=== PATIENT | male | born 1960 | race Caucasian/White ===

== ENCOUNTER 2018-12-07 06:13 | Inpatient (IN) ==
[2018-12-06 10:17] LABS: HEMATOCRIT 38.2 % (42.0-52.0); HEMOGLOBIN 13.7 g/dL (14.0-18.0); MCH 31.8 PG (27-31); MCHC 35.9 g/dL (33-37); MCV 88.6 FL (81-99); MPV 8.1 FL (7.4-10.4); RBC 4.31 XMIL (4.7-6.1); RDW 12.2 % (11.5-14.5); WBC 6.9 X1000 (4.8-10.8)
[2018-12-06 11:10] LABS: AGAP 10; BUN 7 mg/dL (8-22); CALCIUM 9.3 mg/dL (8.8-10.2); CHLORIDE 94 mmol/L (98-107); COSMO 263; CREATININE 0.7 mg/dL (0.7-1.2); ESTIMATED GFR > 60; GLUCOSE 104 mg/dL (70-104); POTASSIUM 4.5 mmol/L (3.5-5.1); SODIUM 132 mmol/L (136-145); TCO2 28 mmol/L (25-35)
[2018-12-07] MEDS ORDERED: LR 1,000 ML ONE ×3 (06:41→14:22)
[2018-12-07] MEDS ORDERED: INVANZ 1 GM/NS 1 GM/50 ML IVPB ONE (06:41)
[2018-12-07] MEDS ORDERED: ENTEREG ONE (06:41)
[2018-12-07] MEDS ORDERED: DIPRIVAN 1% ONE (07:34)
[2018-12-07] MEDS ORDERED: XYLOCAINE-MPF 2% ONE (07:39)
[2018-12-07] MEDS ORDERED: QUELICIN (DOSE) ONE (07:39)
[2018-12-07] MEDS ORDERED: MARCAINE 0.25% ONE (08:03)
[2018-12-07] MEDS ORDERED: EXPAREL 1.3% ONE (08:03)
[2018-12-07] MEDS ORDERED: SENSORCAINE-MPF 0.5%/EPI 1:200,000 ONE (08:14)
[2018-12-07] MEDS ORDERED: OFIRMEV 1000 MG/ISOTONIC SOLN 1,000 MG/100 ML BOTTLE ONE (10:31)
[2018-12-07] MEDS ORDERED: DECADRON ONE (10:31)
[2018-12-07] MEDS ORDERED: ROBINUL ONE ×3 (10:31→13:47)
[2018-12-07] MEDS ORDERED: ZOFRAN ONE (10:31)
[2018-12-07] MEDS ORDERED: FENTANYL ONE (13:19)
[2018-12-07] MEDS ORDERED: NEOSTIGMINE ONE (13:47)
[2018-12-07 14:29] LABS: URINE SOURCE CATH
[2018-12-07] MEDS: DILAUDID ONE ×6 (14:35→15:02)
[2018-12-07 14:42] LABS: BILIRUBIN URINE NEGATIVE (NEGATIVE); BLOOD URINE LARGE (NEGATIVE); COLOR ORANGE; GLUCOSE URINE NEGATIVE (NEGATIVE); KETONE URINE TRACE mg/dL (NEGATIVE); LEUKOCYTES URINE NEGATIVE (NEGATIVE); NITRITE URINE NEGATIVE (NEGATIVE); PH URINE 6.5; PROTEIN URINE 30 mg/dL (NEGATIVE); SP GRAVITY URINE 1.004; TURBIDITY URINE HAZY (CLEAR); UROBILINOGEN URINE NORMAL (NORMAL)
[2018-12-07 14:44] LABS: UR EPITHELIAL CELLS <10 /HPF (<10); URINE BACTERIA NEGATIVE /HPF; URINE RBC TNTC /HPF (<10); URINE WBC <10 /HPF (<10)
[2018-12-07] MEDS: ZOFRAN IV PRN (17:00)
[2018-12-07] MEDS: MORPHINE IV PRN ×2 (17:00→21:11)
[2018-12-07] MEDS: OFIRMEV 1000 MG/ISOTONIC SOLN 1,000 MG/100 ML BOTTLE IV SCH ×2 (17:03→22:30)
--- NOTE | 2018-12-07 18:08 | OPERATIVE NOTE ---
PROCEDURE DATE: 12/07/2018 PREOPERATIVE DIAGNOSIS: 1. Diverticulitis. 2. Fossa navicularis stricture. POSTOPERATIVE DIAGNOSIS: 1. Diverticulitis. 2. Fossa navicularis stricture. PROCEDURE PERFORMED: 1. Cystoscopy with urethral dilation. 2. Bilateral external lighted stent placement. SURGEON: Alfonso Naylor MD. COMPLICATIONS: None. BLOOD LOSS: Minimal. DRAINS: 1. Bilateral external lighted stents. 2. A 16-Gambian Martins catheter. ANESTHESIA: General anesthesia. INDICATION FOR PROCEDURE: Mr. Gardner is a 58-year-old with history of diverticulitis. He has been followed by Dr. Otero and has had multiple flares. Ultimately patient desired undergoing a robotic assisted laparoscopic sigmoid colectomy. Risks, benefits and alternatives were discussed with the patient. In talking with Dr. Otero, he desired placement of external lighted stents. Urology was consulted who saw the patient in the preop area in preparation for cystoscopy and placement of external lighted stents. The patient has previously seen by Dr. Cervantes for urethral stricture disease and has undergone dilations both in the operating room as well as in the office. The patient states he currently voids well without any issues. Discussed with him preoperatively undergoing cystoscopy and bilateral external lighted stent placement. Risks, benefits and alternatives to this were discussed with the patient, and the patient wished to proceed. DESCRIPTION OF PROCEDURE: After informed consent was obtained, the patient was brought to the operating room and placed on the operative table in supine position. He received preoperative appointment per GI Surgery protocol. He underwent general anesthesia and was then prepped and draped in usual fashion at which time a preop time-out was performed with all parties in agreement, including anesthesia, surgical and nursing staff. At which time I attempted to place a 21-Gambian cystourethroscope. Once inside the meatus, there was a stricture in the a fossa navicularis. I was unable to pass the cystourethroscope any farther. Ultimately obtained Ritchie dilators, and starting at 16-Gambian and increasing up to 24-Gambian, these slid easily through this narrow area and allowed for dilation at which point I was able to pass the cystourethroscope easily, which showed normal appearance of the proximal urethra. No evidence of any stricture disease. The patient had slight enlargement of the prostate with a small median lobe. On inspection of the bladder, there was no evidence of any trabeculations, cellules, diverticulum or lesions. Both ureteral orifices were visualized with efflux of clear urine at which point I placed the first external lighted stent through the scope and cannulated the right ureteral orifice and passed the ureteral stent passed up to 25cm parish. The cystourethroscope was then removed, and then reinserted and ureteral catheter was then placed in the left ureteral orifice. There was slight bowing of the externalized catheters, which required pulling back on both sides at which point the cystourethroscope was completely removed, and the lighted portions of the stents were then passed through the open-ended catheters due to the patient these were attached, and a 16-Gambian Martins catheter was inserted through the urethra. 10 mL of sterile water were placed through the balloon and placed to gravity drainage. These were all tied together with a silk tie. The patient was then transferred back to the care of Dr. Otero for his portion of procedure. Please see separately dictated operative note. cc: MD Laura Abel MD MTDD
--- NOTE | 2018-12-07 18:30 | OPERATIVE NOTE ---
PROCEDURE DATE: 12/07/2018 PREOPERATIVE DIAGNOSIS: Refractory diverticulitis. POSTOPERATIVE DIAGNOSIS: Refractory diverticulitis. OPERATION: Robotic-assisted laparoscopic sigmoid colectomy. SURGEON: Luara Otero MD FIRE SPRINKLER FITTER: Will Estevez MD. Dr. Estevez was present for the creation of the anastomosis, fired the stapler and facilitated exposure. ESTIMATED BLOOD LOSS: 50 mL SPECIMENS: Sigmoid colon. ANESTHESIA: General with TAP block. INDICATIONS: A 58-year-old gentleman who has had recurrent episodes of diverticulitis for some time. The most recent episode has persisted, and he has had consistent lower abdominal discomfort and dysuria. OPERATIVE FINDINGS: There is thickening and extensive diverticular changes of a redundant sigmoid colon. The proximal rectum and distal descending appeared overall normal, with the exception of some diverticula in the descending colon. PROCEDURE: Risks, benefits and alternatives were discussed with the patient. He consented to the procedure, seen preoperatively. The surgical site was confirmed. He was taken to the operating room and placed in supine position. General anesthesia was induced. We did attempt to place lighted ureteral stents by Dr. Naylor, but he was unable to get these to fully cannulate the ureters. A Martins catheter was placed. He was then placed in lithotomy position, and after hair was removed with clippers his abdomen was prepped with chlorhexidine solution and draped in the usual fashion. After a time-out, we started with a supraumbilical just right of midline incision approximately 25 cm from the pubic symphysis and carried this down through the muscle, splitting the fibers. We then entered the abdomen in an open controlled fashion and a 12 mm camera was placed. We then insufflated the abdomen. Between the ASIS and the umbilicus we placed a robotic 12 mm trocar. In the left upper quadrant we placed a robotic trocar. In the right upper quadrant we placed an temporary administrative assistant 5 mm trocar, and left laterally above the reflection of the colon we placed another robotic trocar. We docked the robot. There were dense lateral adhesions. We took these down, identifying the ureter promptly and protecting along its course. We then continued our mobilization as proximal as we could, up toward the splenic flexure and distally down to the proximal rectum, which was healthy. We then divided the sigmoid branches off of the ABDIFATAH, took these and carried our dissection distally, clearing off the colon both proximally and distally. We placed a Alessandra drain around our planned distal transection point, administered our Firefly fluorescence, and noted good perfusion of the distal rectum at our transection point and of the proximal specimen. At this point a green load stapler was used to divide the colon distally. We then created a specimen extraction port in the left lower quadrant. I placed an Kurtis, brought our specimen out and then transected with curved Acosta scissors. We noted bleeding at our cut mucosal edge. A 28 mm EEA anvil was placed into the colon proximally and then the distal colon was closed with another fire of the AMIE. We did incorporate around the anvil some adjacent diverticula. I placed this back into the abdomen and then re-insufflated the abdomen. The 28 mm EEA stapler was passed up from below. The spike was deployed. We mated the 2 ends. There was no tension. There was good closure and 2 intact donuts were noted. We did a submerged pneumatic leak test. There was no leaking noted. Dr. Estevez performed the stapled portion of the anastomosis and was critical to the completion of this case. After this, we inspected and noted hemostasis. No twisting of our proximal specimen. There was no tension whatsoever on our anastomosis. We removed all of our trocars. We closed the fascia in the specimen extraction site in 2 layers with 0 Vicryl and #1 PDS suture. The other trocars were closed with 0 Vicryl and the skin was closed with surgical clips. Dressing was applied. His urine was clear at the end of the case. He was awoken and transferred to recovery. I spoke with the family. cc: Laura Otero MD
[2018-12-07] MEDS: PERIDEX MT SCH (21:10)
[2018-12-07] MEDS: BETAPACE PO SCH (21:14)
[2018-12-07] MEDS: TEGRETOL PO SCH (21:17)
[2018-12-07] MEDS: LYRICA PO SCH (21:24)
[2018-12-08] MEDS: OFIRMEV 1000 MG/ISOTONIC SOLN 1,000 MG/100 ML BOTTLE IV SCH ×2 (06:11→11:01)
[2018-12-08 06:13] LABS: HEMATOCRIT 36.5 % (42.0-52.0); HEMOGLOBIN 13.1 g/dL (14.0-18.0); MCH 32.2 PG (27-31); MCHC 35.9 g/dL (33-37); MCV 89.7 FL (81-99); MPV 8.2 FL (7.4-10.4); RBC 4.07 XMIL (4.7-6.1); RDW 12.4 % (11.5-14.5); WBC 12.17 X1000 (4.8-10.8)
[2018-12-08] MEDS: MORPHINE IV PRN ×3 (06:29→16:52)
[2018-12-08] MEDS: ZOFRAN IV PRN ×2 (06:29→23:10)
[2018-12-08 06:39] LABS: AGAP 9; BUN 6 mg/dL (8-22); CALCIUM 8.6 mg/dL (8.8-10.2); CHLORIDE 100 mmol/L (98-107); COSMO 273; CREATININE 0.7 mg/dL (0.7-1.2); ESTIMATED GFR > 60; GLUCOSE 131 mg/dL (70-104); POTASSIUM 4.4 mmol/L (3.5-5.1); SODIUM 137 mmol/L (136-145); TCO2 28 mmol/L (25-35)
--- NOTE | 2018-12-08 07:03 | GENERAL SURGERY PROGRESS NOTE ---
DATE: 12/08/2018 SUBJECTIVE: The patient seems to be doing okay. OBJECTIVE: Vital Signs: The patient is currently afebrile. His vital signs are stable. General: No acute distress. Cardiovascular: Regular rate and rhythm. Lungs: Grossly clear. Abdomen: Soft. Appropriately tender. ASSESSMENT AND PLAN: A 58-year-old gentleman, currently postoperative day #1 for laparoscopic robot assisted sigmoid colectomy. Postoperative state. At this time, we will continue routine postoperative care. We will mobilize the patient. He does have a Martins catheter. We will keep it until tomorrow and we will continue to monitor him. cc: MD Laura Brower MD
[2018-12-08] MEDS: DILAUDID ONE (08:56)
[2018-12-08] MEDS: FLOMAX PO SCH (08:57)
[2018-12-08] MEDS: TEGRETOL PO SCH ×2 (08:57→21:30)
[2018-12-08] MEDS: BETAPACE PO SCH ×2 (08:58→21:32)
[2018-12-08] MEDS: LOVENOX SUBQ SCH (08:58)
[2018-12-08] MEDS: NORVASC PO SCH (08:58)
[2018-12-08] MEDS: LYRICA PO SCH ×2 (08:58→21:32)
[2018-12-08] MEDS: MAG-OX PO SCH (08:58)
[2018-12-08] MEDS: LR 1,000 ML IV SCH ×3 (08:59→22:20)
[2018-12-08] MEDS: PERIDEX MT SCH ×2 (08:59→21:31)
[2018-12-08] MEDS: NEXIUM PO SCH (11:01)
[2018-12-08] MEDS: ENTEREG PO SCH ×2 (11:01→21:33)
[2018-12-09] MEDS: MORPHINE IV PRN (00:07)
[2018-12-09] MEDS ORDERED: CATAPRES PO PRN (05:37)
[2018-12-09] MEDS: NEXIUM PO SCH (06:00)
--- NOTE | 2018-12-09 06:56 | GENERAL SURGERY PROGRESS NOTE ---
DATE: 12/09/2018 SUBJECTIVE: Patient seems to be doing okay. He is tolerating his clear liquid diet. He is passing gas but has not had a bowel movement. His blood pressure has been up a little bit but he has not been taking his home medications. OBJECTIVE: Vital Signs: The patient is currently afebrile. His vital signs are stable. General Examination: No acute distress. Cardiovascular: Regular rate and rhythm. Lungs: Grossly clear. Abdomen: Soft. Appropriately tender. Some bowel sounds auscultated on exam. Incisions are healing well. ASSESSMENT AND PLAN: A 58-year-old gentleman status post robotic assisted low anterior, currently postoperative day #2. Postoperative state. At this time, the patient seems to be doing well. Depending on how he does today, could consider discharging him in the next 12 to 24 hours. We will advance him to a regular diet. His Martins catheter is going to come out. We will continue routine postoperative care. cc: MD Laura Brower MD
[2018-12-09] MEDS ORDERED: ZANAFLEX PO SCH (09:00)
[2018-12-09] MEDS ORDERED: ELIQUIS PO SCH (09:00)
[2018-12-09] MEDS ORDERED: PRINIVIL PO SCH (09:00)
[2018-12-09] MEDS: LR 1,000 ML IV SCH (09:40)
[2018-12-09] MEDS: LOVENOX SUBQ SCH (09:40)
[2018-12-09] MEDS: BETAPACE PO SCH (09:41)
[2018-12-09] MEDS: MAG-OX PO SCH (09:41)
[2018-12-09] MEDS: FLOMAX PO SCH (09:41)
[2018-12-09] MEDS: TEGRETOL PO SCH (09:42)
[2018-12-09] MEDS: NORVASC PO SCH (09:42)
[2018-12-09] MEDS: PERIDEX MT SCH (09:42)
[2018-12-09] MEDS: ENTEREG PO SCH (09:42)
[2018-12-09] MEDS: LYRICA PO SCH (09:47)
[2018-12-09 13:17] VITALS: BP 152/85
== END 2018-12-09 16:27 | disposition home or self-care (01) | DRG 331 ==
LOC: SURHOLD 06:13 → EDSTATUS 09:00 → 4N 15:30
PROVIDERS: ADMIT Surgery; ATTEND Surgery
CPT/HCPCS: 80048; 81001; 85027; 86850; 86900; 86901; 86920; 88307; 94761; 94799; 97161; 97530; A9270; C9290; J0131; J0330; J1100; J1170; J1335; J1650; J2270; J2405; J3010; J7120; S0020; S2900